=== PATIENT | female | born 1990 | race Caucasian/White ===

== ENCOUNTER 2019-10-18 23:04 | Emergency (ER) | payer MEDICAID ==
[2019-10-19] MEDS ORDERED: Alum Hydrox/Mag Hydrox/Simeth 30 ML, Lidocaine 2% 15 ML PO ONE ×2 (00:05)
--- NOTE | 2019-10-19 00:12 | EDM.PDOC ---
ED HPI GENERAL MEDICAL PROBLEM - General Chief Complaint: Allergic Reaction Stated Complaint: POSS ALERGIC REACTION Time Seen by Provider: 10/18/19 23:07 Source of Information: Reports: Patient History Limitations: Reports: No Limitations - History of Present Illness INITIAL COMMENTS - FREE TEXT/NARRATIVE: TRIAGE NOTE -- Pt had MRI this morning around 7am. Pt was sedated for the MRI. P [t stated that she is now having pain in the upper middle ABD area and hernandez a red rash on her chest and her face is more red than normal [ End ] Apparently had MRI with contrast almost 18 hours ago. She thinks that either the contrast or sedation used to tolerate the study provoked a rash as well as the epigastric pain. There is been no vomiting no fever or any other risk factors except for type 2 diabetes. She has not taken any medication or tried any other measure to moderate symptoms. Patient does not feel particularly unwell at this time. She is just concerned about a mild skin rash and epigastric discomfort. Upper Abdomen Pain Score (Numeric/FACES): 6 - Related Data Allergies Allergy/AdvReac Type Severity Reaction Status Date / Time cephalexin Allergy Anaphylactic Verified 10/18/19 23:16 Shock diphenhydramine Allergy Itching Verified 10/18/19 23:16 [From Benadryl] prochlorperazine Allergy Nausea and Verified 10/18/19 23:16 [From Compazine] Vomiting Home Meds: Home Meds Albuterol [Proventil Neb Soln] 10/18/19 [History] Budesonide/Formoterol Fumarate [Symbicort 160-4.5 Mcg Inhaler] 6 gm IH ASDIRECTED 10/18/19 [History] metFORMIN [Glucophage XR] 500 mg PO WITHDINNER 10/18/19 [History] Past Medical History HEENT History: Reports: None Cardiovascular History: Reports: None Respiratory History: Reports: Asthma Gastrointestinal History: Reports: None Genitourinary History: Reports: None 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: Polycystic Ovaries, Musculoskeletal History: Reports: None Neurological History: Reports: Brain Injury, Head Trauma, Migraines, Speech Problems Psychiatric History: Reports: None Endocrine/Metabolic History: Reports: None Hematologic History: Reports: None Immunologic History: Reports: None Oncologic (Cancer) History: Reports: None Dermatologic History: Reports: None Social & Family History - Tobacco Use Smoking Status *Q: Never Smoker - Caffeine Use Caffeine Use: Reports: Coffee - Recreational Drug Use Recreational Drug Use: No ED ROS ALLERGIC REACTION - Review of Systems Review Of Systems: Comprehensive ROS is negative, except as noted in HPI. ED EXAM GENERAL NO PERIP PULSE - Physical Exam Exam: See Below Exam Limited By: No Limitations General Appearance: Alert, WD/WN, No Apparent Distress Eye Exam: Bilateral Eye: EOMI, PERRL Ears: Normal External Exam Nose: Normal Inspection Throat/Mouth: Normal Inspection, Normal Lips, Normal Oropharynx, Normal Voice, No Airway Compromise Head: Atraumatic, Normocephalic Neck: Normal Inspection, Supple, Non-Tender Respiratory/Chest: No Respiratory Distress, Lungs Clear, Normal Breath Sounds, No Accessory Muscle Use, Chest Non-Tender Cardiovascular: Regular Rate, Rhythm, No Edema GI/Abdominal: Soft, No Distention, Tender (Mild epigastric tenderness). No: Guarding, Rebound Back Exam: Normal Inspection Extremities: Normal Inspection, Non-Tender, No Pedal Edema Neurological: Alert, Oriented, Normal Cognition, No Motor/Sensory Deficits Psychiatric: Normal Affect, Normal Mood Skin Exam: Warm, Dry, Intact, Rash (There is a mild rash slightly blanching face especially the cheeks upper chest as well as in a circumscribed area right arm from above to below the antecubital area. IV site apparently in the right antecubital area from study earlier today. Rash in this area is almost as though it is where there was a cough or other device for immobilizing the elbow for IV access.) Course - Vital Signs Last Recorded V/S: Last Vital Signs Temp 36.3 C 10/18/19 23:11 Pulse 84 10/18/19 23:11 Resp 18 10/18/19 23:11 BP 137/70 10/18/19 23:11 Pulse Ox 100 10/18/19 23:11 - Orders/Labs/Meds Labs: Laboratory Tests 10/18/19 10/18/19 10/19/19 Range/Units 23:37 23:37 00:14 POC Glucose 118 H (70-105) mg/dL Urine Color Yellow (Yellow) Urine Appearance Clear (Clear) Urine pH 5.5 (5.0-8.0) Ur Specific [place] > or = 1.030 (1.005-1.030) Urine Protein Negative (Negative) Urine Glucose (UA) Negative (Negative) Urine Ketones Negative (Negative) Urine Occult Blood 2+ H (Negative) Urine Nitrite Negative (Negative) Urine Bilirubin Negative (Negative) Urine Urobilinogen 0.2 (0.2-1.0) Ur Leukocyte Esterase Negative (Negative) Urine RBC 0-5 (0-5) /hpf Urine WBC Not seen (0-5) /hpf Ur Squamous Epith Cells 5-10 H (0-5) /hpf Urine Bacteria Rare (FEW) /hpf Urine Mucus Not seen (FEW) /hpf Urine HCG, Qual Negative (NEGATIVE) Meds: Medications Discontinued Medications Generic Name Dose Route Start Last Admin Trade Name Freq PRN Reason Stop Dose Admin Al Hydroxide/Mg Hydroxide 30 0 ml 10/19/19 00:05 10/19/19 00:15 ml/ Lidocaine HCl 15 ml PO 10/19/19 00:06 45 ml ONETIME ONE Administration Methylprednisolone Sodium Succinate 60 mg 10/19/19 00:21 Solu-Medrol IM 10/19/19 00:22 ONETIME ONE - Re-Assessments/Exams Free Text/Narrative Re-Assessment/Exam: 10/19/19 00:26 On exam it appears the patient has something of a contact dermatitis right arm possibly from a dressing or cough applied during her procedure earlier. There is also a mild rash of the face and upper chest which may represent an allergic reaction to either contrast for MRI or the sedation used. In any event the skin rashes are quite mild and there is no other related issue. No shortness of breath. No stridor. No wheeze. The epigastric discomfort was relieved by GI cocktail. It is doubtful that this epigastric discomfort is related to anything she got during the procedure but the entire situation needs to be presented to the patient's primary and this is to be done later today. Departure - Departure Time of Disposition: 00:29 Disposition: Home, Self-Care 01 Condition: Good Clinical Impression: Allergic rash present on examination, Peptic ulcer symptoms Contact dermatitis Qualifiers: Contact dermatitis type: allergic Contact dermatitis trigger: unspecified trigger Qualified Code(s): L23.9 - Allergic contact dermatitis, unspecified cause - Discharge Information *PRESCRIPTION DRUG MONITORING PROGRAM REVIEWED*: Not Applicable *COPY OF PRESCRIPTION DRUG MONITORING REPORT IN PATIENT ROS: Not Applicable Referrals: PCP,Not In Area [Primary Care Provider] - Forms: ED Department Discharge Additional Instructions: You have been seen for a rash that seems to be related to your MRI procedure with sedation some 18 hours or so ago. On your right arm this appears to be a contact dermatitis possibly from a cough or dressing related to IV access. There is also a mild rash upper chest and face which appears to be allergic and may be related also to that procedure. You have received a dose of Solu-Medrol a steroid which should moderate the symptoms. You have pain in the upper abdomen which seems like peptic ulcer pain and is probably not related to the procedure earlier. However if this continues it is suggested that you use an [id number] medication such as Nexium to manage this. Please report all of this to your primary later today for further recommendations and instructions. Return to ER immediately for any respiratory symptoms nausea vomiting fever increased abdominal pain or any other troubling symptom at all. Sepsis Event Note - Evaluation Sepsis Screening Result: No Definite Risk - Focused Exam Vital Signs: Vital Signs Temp Pulse Resp BP Pulse Ox 10/18/19 23:11 36.3 C 84 18 137/70 100 Date Exam was Performed: 10/19/19 Time Exam was Performed: 00:25
[2019-10-19] MEDS ORDERED: methylPREDNISolone Sodium Succinate 40 MG/1 ML SDV IM ONE (00:21)
== END 2019-10-19 00:42 | disposition home or self-care (01) ==
LOC: JD.ED 23:04
DX: L23.9 Allergic contact dermatitis, unspecified cause (principal); R10.13 Epigastric pain; Z88.1 Allergy status to other antibiotic agents; Z88.8 Allergy status to other drugs, medicaments and biological substances
CPT/HCPCS: 81001; 81025; 82962; 96372; 99283; A9270-GY; J2920

== ENCOUNTER 2020-11-27 09:02 | Emergency (ER) | payer MEDICAID ==
--- NOTE | 2020-11-27 09:38 | EDM.PDOC ---
ED HPI GENERAL MEDICAL PROBLEM - General Chief Complaint: Lower Extremity Injury/Pain Stated Complaint: RT ANKLE INJURY Time Seen by Provider: 11/27/20 09:17 Source of Information: Reports: Patient, RN Notes Reviewed - History of Present Illness INITIAL COMMENTS - FREE TEXT/NARRATIVE: 30 yr old female injured R ankle a short time ago, stepped into a hole, heard and felt a snap or pop. Has been unable to bear wt since the injury. No other pain or injury. Right Ankle Pain Score (Numeric/FACES): 10 - Related Data Allergies Allergy/AdvReac Type Severity Reaction Status Date / Time cephalexin Allergy Anaphylactic Verified 11/27/20 09:25 Shock diphenhydramine Allergy Itching Verified 11/27/20 09:25 [From Benadryl] prochlorperazine Allergy Nausea and Verified 11/27/20 09:25 [From Compazine] Vomiting Home Meds: Home Meds Albuterol [Proventil Neb Soln] 2.5 mg IH DAILY PRN 10/18/19 [History] Budesonide/Formoterol Fumarate [Symbicort 160-4.5 Mcg Inhaler] 6 gm IH ASDIRECTED 10/18/19 [History] metFORMIN [Glucophage XR] 500 mg PO WITHDINNER 10/18/19 [History] Past Medical History HEENT History: Reports: None Cardiovascular History: Reports: None Respiratory History: Reports: Asthma Gastrointestinal History: Reports: None Genitourinary History: Reports: None 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: Polycystic Ovaries, Musculoskeletal History: Reports: None Neurological History: Reports: Brain Injury, Head Trauma, Migraines, Speech Problems Psychiatric History: Reports: None Endocrine/Metabolic History: Reports: None Hematologic History: Reports: None Immunologic History: Reports: None Oncologic (Cancer) History: Reports: None Dermatologic History: Reports: None Social & Family History - Caffeine Use Caffeine Use: Reports: Coffee Review of Systems - Review of Systems Review Of Systems: See Below Cardiovascular: Reports: No Symptoms GI/Abdominal: Reports: No Symptoms Musculoskeletal: Reports: Joint Pain (R ankle) Skin: Reports: No Symptoms Neurological: Reports: Numbness (mild distal foot), Difficulty Walking ED EXAM, GENERAL - Physical Exam Exam: See Below General Appearance: Alert, Mild Distress Head: Atraumatic Neck: Supple Respiratory/Chest: No Respiratory Distress, Lungs Clear, Normal Breath Sounds Cardiovascular: Regular Rate, Rhythm Extremities: Other (moderate diffuse swelling and tenderss lateral R ankle, mild medial tenderness, foot and leg otherwise nontender) Neurological: Alert, Oriented Skin Exam: Warm, Dry, Normal Color Course - Vital Signs Last Recorded V/S: Last Vital Signs Temp 97.0 F 11/27/20 09:14 Pulse 86 11/27/20 09:14 Resp 20 11/27/20 09:14 BP 127/89 11/27/20 09:14 Pulse Ox 98 11/27/20 09:14 - Orders/Labs/Meds Orders: Active Orders 24 hr Category Date Time Status Durable Medical Equipment for Discharge [DME for Oth 11/27/20 10:19 Ordered Discharge] [COMM] Stat Durable Medical Equipment for Discharge [DME for Oth 11/27/20 10:19 Ordered Discharge] [COMM] Stat Durable Medical Equipment for Discharge [DME for Oth 11/27/20 10:20 Ordered Discharge] [COMM] Stat - Re-Assessments/Exams Free Text/Narrative Re-Assessment/Exam: 11/27/20 10:30 X rays no fx Departure - Departure Time of Disposition: 10:20 Disposition: Home, Self-Care 01 Clinical Impression: Right ankle sprain Qualifiers: Encounter type: initial encounter Involved ligament of ankle: unspecified ligament Qualified Code(s): S93.401A - Sprain of unspecified ligament of right ankle, initial encounter - Discharge Information Instructions: Ankle Sprain Referrals: Gisselle Eugene NP [Primary Care Provider] - Forms: ED Department Discharge Additional Instructions: Marc wrap, crutches, ice packs and elevation for swelling. Walking boot as needed for comfort and support. Alternate tylenol and ibuprofen or aleve as needed for discomfort. Follow up clinic if symptoms not resolving within 1 to 2 weeks as expected. Sepsis Event Note (ED) - Evaluation Sepsis Screening Result: No Definite Risk - Focused Exam Vital Signs: Vital Signs Temp Pulse Resp BP Pulse Ox 11/27/20 09:14 97.0 F 86 20 127/89 98 - My Orders Last 24 Hours: My Active Orders 11/27/20 10:19 Durable Medical Equipment for Discharge [DME for Discharge] [COMM] Stat Durable Medical Equipment for Discharge [DME for Discharge] [COMM] Stat 11/27/20 10:20 Durable Medical Equipment for Discharge [DME for Discharge] [COMM] Stat - Assessment/Plan Last 24 Hours: My Active Orders 11/27/20 10:19 Durable Medical Equipment for Discharge [DME for Discharge] [COMM] Stat Durable Medical Equipment for Discharge [DME for Discharge] [COMM] Stat 11/27/20 10:20 Durable Medical Equipment for Discharge [DME for Discharge] [COMM] Stat
--- NOTE | 2020-11-27 10:07 | CR ---
Right ankle: 4 views of the right ankle were obtained. Soft tissue swelling is identified. Ankle mortise is symmetric. No acute fracture, dislocation or other bony abnormality is appreciated. Impression: 1. Soft tissue swelling. 2. No acute osseous abnormality is appreciated. Diagnostic code #2
== END 2020-11-27 10:40 | disposition home or self-care (01) ==
LOC: JD.ED 09:02
DX: S93.401A Sprain of unspecified ligament of right ankle, initial encounter (principal); Z88.1 Allergy status to other antibiotic agents; Z88.8 Allergy status to other drugs, medicaments and biological substances; J45.909 Unspecified asthma, uncomplicated; X58.XXXA Exposure to other specified factors, initial encounter
CPT/HCPCS: 73610-26-RT; 73610-RT; 99282; 99283